=== PATIENT | female | born 1995 | race African-American/Black ===

== ENCOUNTER → 2017-01-05 | Outpatient (CLI) | payer BC | LOC: MC.RAD 12-15 07:30 | DX: N63.20 Unspecified lump in the left breast, unspecified quadrant (principal) ==

== ENCOUNTER 2017-12-27 14:16 | Outpatient (CLI) | payer MEDICAID ==
[~2017-12-27] VITALS: Ht 147.3 cm; Wt 63.6 kg
[2017-12-27 14:48] VITALS: BP 116/76; PULSE 80; TEMP 98.7
[2017-12-27] MEDS ORDERED: PRENATAL VITAMI1 TA3 PO (14:48)
[2017-12-27] MEDS ORDERED: BENADRYL25 M2 PO (23:05)
== END 2017-12-27 15:50 | disposition home or self-care (01) ==
LOC: LDRO 14:16
DX: O62.9 Abnormality of forces of labor, unspecified (principal); Z3A.39 39 weeks gestation of pregnancy

== ENCOUNTER 2017-12-27 22:39 | Inpatient (IN) | payer MEDICAID ==
[~2017-12-27] VITALS: Ht 147.3 cm; Wt 63.6 kg
[~2017-12-27 22:39] MED LIST: PRENATAL VITAMI1 TA3 PO
[2017-12-27 23:00] VITALS: BP 122/72; PULSE 84; TEMP 98.1
[2017-12-27] MEDS ORDERED: BENADRYL25 M2 PO (23:05)
[2017-12-27 23:15] VITALS: BP 122/72; PULSE 84; TEMP 98.1
[2017-12-28] VITALS (84 sets, daily range): BP systolic 16–137; BP diastolic 51–87; PULSE 68–126; TEMP 98.2–100
[2017-12-28 01:57] LABS: BASO % 0.2 % (0.0-2.0); EOS % 0.2 % (0-4.0); GRAN # 9.9 (1.4-6.5); GRAN % 81.8 % (42.2-75.2); HEMOGLOBIN 10.5 g/dl (12.5-16.0); LYMPH # 1.4 (1.2-3.4); LYMPH % 11.6 % (20.0-51.0); MEAN CELL VOLUME 83 fl (80.0-100.0); MEAN CORPUSCULAR HEMOGLOBIN 27 pg (27.0-31.0); MEAN CORPUSCULAR HGB CONC 32 g/dl (33.0-37.0); MEAN PLATELET VOLUME 12.9 fl (7.4-10.4); MONO # 0.7 (0.1-0.6); MONO % 5.9 % (1.7-9.3); PLATELET COUNT 243 K/mm3 (130-400); RED BLOOD COUNT 3.94 M/mm3 (4.10-5.30); REDCELL DISTRIBUTION WIDTH-CV 13.2 % (11.5-14.5)
[2017-12-28 02:11] LABS: HEMATOCRIT 32.7 % (37.0-47.0)
[2017-12-29 00:35] VITALS: BP 103/62; PULSE 85
[2017-12-29 05:05] VITALS: BP 103/70; PULSE 83; TEMP 97.6
[2017-12-29 06:45] LABS: HEMOGLOBIN 9.6 g/dl (12.5-16.0)
[2017-12-29 08:30] VITALS: BP 116/79; PULSE 70; TEMP 97.7
[2017-12-29] MEDS ORDERED: IBU600 MG PO (08:54)
[2017-12-29 12:10] VITALS: BP 106/67; PULSE 93; TEMP 97.8
[2017-12-29 20:00] VITALS: BP 115/68; PULSE 83; TEMP 97.5
[2017-12-30 07:35] VITALS: BP 123/76; PULSE 62; TEMP 97.9
[2017-12-30] MEDS ORDERED: SENOKOT S 50 MG1 TAB PO (11:03)
== END 2017-12-30 12:15 | disposition home or self-care (01) | DRG 807 ==
LOC: LDRO 22:39 → OB 12-28 00:11 → LDR 12-28 00:11 → OB 12-29 00:09
PROVIDERS: Obstetrics & Gynecology; Student in an Organized Health Care Education/Training Program
PROC: 10E0XZZ Delivery of Products of Conception, External Approach (ICD-10-PCS; principal; 2017-12-28)
DX: O99.02 Anemia complicating childbirth (principal); Z37.0 Single live birth; Z3A.39 39 weeks gestation of pregnancy; O32.8XX0 Maternal care for other malpresentation of fetus, not applicable or unspecified; Z28.21 Immunization not carried out because of patient refusal; D64.9 Anemia, unspecified
CPT/HCPCS: J1200; J2590; J2795; J7120